=== PATIENT | male | born 1965 | race Caucasian/White ===

== ENCOUNTER 2020-11-08 19:39 | Observation (INO) | payer OTHER ==
[2020-11-08 19:44] VITALS: BMI 33.4
[2020-11-08] MEDS ORDERED: HYDROcodone/Acetaminophen 5/325 mg Tablet PO PRN (19:59)
[2020-11-08] MEDS ORDERED: Dextrose 5% in Water 1,000 ML IV PRN (19:59)
[2020-11-08] MEDS ORDERED: Ondansetron PF 4 MG/2 ML Vial IVP PRN (19:59)
[2020-11-08] MEDS ORDERED: Guaifenesin DM 100-10/5 ML UDCUP PO PRN (19:59)
[2020-11-08] MEDS ORDERED: Zolpidem Tartrate 5 MG TAB PO PRN (19:59)
[2020-11-08] MEDS ORDERED: Acetaminophen 325 MG TAB PO PRN (19:59)
[2020-11-08] MEDS ORDERED: Dextrose 50% Abboject 50 ML SYRINGE SLOW IVP PRN (19:59)
[2020-11-08] MEDS ORDERED: Senokot S 8.6-50 MG TAB PO PRN (19:59)
[2020-11-08] MEDS ORDERED: Calcium Carbonate 500 MG ChewTAB PO PRN (19:59)
[2020-11-08] MEDS ORDERED: Nicotine 14 MG PATCH TD SCH (20:00)
[2020-11-08] MEDS ORDERED: Nitroglycerin 2% Ointment 1 INCH/1 GM Packet TOP SCH (20:15)
[2020-11-08] MEDS ORDERED: Atorvastatin Calcium 10 MG TAB PO SCH (21:00)
[2020-11-09 07:29] LABS: Anion Gap 12 mmol/L (10-20); BUN (Urea Nitrogen) 19 mg/dL (8.4-25.7); Calc. Creatinine Clearance 130 mL/min (70-130); Calcium 9.2 mg/dL (7.8-10.44); Carbon Dioxide 28 mmol/L (22-29); Cardiac Risk 5.4 (Less than 4.5); Chloride 103 mmol/L (98-107); Cholesterol 279 mg/dl (< 200 Desired); Glucose 111 mg/dL (70-105); HDL Cholesterol 52 mg/dL (>60 Neg Risk); LDL Cholesterol, Calculated 182 mg/dL; Potassium 4.3 mmol/L (3.5-5.1); Sodium 139 mmol/L (136-145); Triglycerides 223 mg/dL (Less than 150)
[2020-11-09] MEDS ORDERED: Ketorolac Tromethamine 30 MG/ML VIAL IVP SCH (08:15)
[2020-11-09] MEDS ORDERED: Lisinopril 10 MG TAB PO SCH (09:00)
[2020-11-09] MEDS ORDERED: Aspirin 81 mg Enteric Coated Tablet PO SCH (09:00)
[2020-11-09] MEDS ORDERED: Enoxaparin Sodium 40 MG/0.4 ML SYRINGE SC SCH (09:00)
[2020-11-09] MEDS ORDERED: Empagliflozin 10 MG TAB PO SCH (09:00)
[2020-11-09] MEDS ORDERED: Amlodipine 5 mg/Benazepril 10 mg CAP PO SCH (09:00)
[2020-11-09] MEDS ORDERED: Methocarbamol 500 MG TAB PO PRN (09:17)
[2020-11-09 12:15] VITALS: BP 123/73; TEMP 98.3
[2020-11-09] MEDS ORDERED: glipiZIDE 10 MG TAB PO SCH (16:30)
[2020-11-09] MEDS ORDERED: Atorvastatin Calcium 20 MG TAB PO SCH (21:00)
[2020-11-09] MEDS ORDERED: Empagliflozin 25 MG TAB PO SCH (21:00)
[2020-11-09] MEDS ORDERED: traZODone HCl 50 MG TAB PO SCH (21:00)
[2020-11-10] MEDS ORDERED: Citalopram 20 MG TAB PO SCH (09:00)
[2020-11-10] MEDS ORDERED: COLLAGEN PO SCH (09:00)
[2020-11-10] MEDS ORDERED: HYALUR PO SCH (09:00)
[2020-11-10] MEDS ORDERED: BOR PO SCH (09:00)
[2020-11-10] MEDS ORDERED: CARTILAGE PO SCH (09:00)
[2020-11-10] MEDS ORDERED: Multivitamin W/ Minerals 1 TAB PO SCH (09:00)
== END 2020-11-09 15:00 | disposition home or self-care (01) ==
LOC: CSHTELE 19:39
PROVIDERS: ADMIT Hospitalist; ATTEND Hospitalist
DX: R07.89 Other chest pain (principal); R06.02 Shortness of breath; F17.290 Nicotine dependence, other tobacco product, uncomplicated; E78.5 Hyperlipidemia, unspecified; E11.65 Type 2 diabetes mellitus with hyperglycemia; M54.5 Low back pain; G89.29 Other chronic pain; I10 Essential (primary) hypertension; M79.89 Other specified soft tissue disorders; F10.10 Alcohol abuse, uncomplicated; Z79.82 Long term (current) use of aspirin; Z79.899 Other long term (current) drug therapy; Z79.84 Long term (current) use of oral hypoglycemic drugs
CPT/HCPCS: 36415; 36416; 80048; 80061; 84443; 84484; 93306; 96372; 96374; G0378; J1650; J1885